=== PATIENT | female | born 1965 | race Caucasian/White ===

== ENCOUNTER 2020-09-06 13:11 | Emergency (ER) | payer MEDICAID, SELFPAY ==
[2020-09-06 14:21] VITALS: PULSE 62; RESP 15; TEMP 36.6; O2SAT 100
[2020-09-06 14:26] VITALS: BP 87/53
--- NOTE | 2020-09-06 14:39 | XRR_ITS ---
PROCEDURE INFORMATION: Exam: XR Chest Exam date and time: 09/06/2020 2:39 PM Age: 55 years old Clinical indication: Cough and dyspnea; Additional info: Dyspnea/cough TECHNIQUE: Imaging protocol: XR of the chest. Views: 1 view. COMPARISON: CT abdomen pelvis w con* [id number] 09/06/2020 3:49 PM FINDINGS: Lungs: Unremarkable. No consolidation. Pleural spaces: Unremarkable. No pleural effusion. No pneumothorax. Heart/Mediastinum: Unremarkable. No cardiomegaly. Bones/joints: Sequela of ACDF in the lower cervical spine. The osseous structures are intact. XR/XR chest 1V portable [id number] IMPRESSION: No acute findings.
--- NOTE | 2020-09-06 14:41 | ECG_ITS ---
[facility] Test Date: 2020-09-06 Pat Name: Ailyn Banks Department: Room: Gender: Female Nurses Aide: : 1965 Requested By: Darrell Garcia Order Number: [id number] Lazarus MD: Isabella Santos M.D. Measurements Intervals [place] Rate: 66 P: 63 GA: 179 QRS: 59 QRSD: 91 T: 56 QT: 437 QTc: 459 Interpretive Statements SINUS RHYTHM No previous ECG available for comparison Electronically Signed On 09-08-2020 18:33:55 CDT by Isabella Santos M.D. [id number]
[2020-09-06 14:43] LABS: ABG PH Result 7.49 (7.35-7.45); Arterial Blood Gas Hematocrit 37.5 % (37-47); Base Excess ABG 3.8 mmol/L (-2.0-2.0); Blood Gas Allen Test Pos; Blood Gas Operator Identificat CAK; Blood Gas Sample Site Radial, left; Blood Gas Sample Type Arterial; Carboxyhemoglobin 4.9 %THgb (0.4-20.1); HCO3 ABG 27.2 mmol/L (22-26); HGB O2 Sat 93.8 % (95-100); Ionized Calcium Level - ABG 1.2 mmol/L (1.1-1.4); Methemoglobin 0.9 % (0.4-1.5); Oxygen Device NC; Oxygen Saturation ABG 99.5; Potassium Level - ABG 3.7 mmol/L (3.5-5.0); Total Hemoglobin 12.2 g/dL (12-16)
[2020-09-06] MEDS: sodium chloride 0.9% 1,000 ML 999 ML IV ×2 (14:43)
[2020-09-06 14:52] VITALS: BP 136/64; PULSE 67; RESP 18; O2SAT 99
[2020-09-06] MEDS: ondansetron 2 mg/ML SDV 2 mL 4 MG IVP (14:52)
[2020-09-06 14:54] LABS: Ketone (Acetest) Serum Negative (Negative)
[2020-09-06 14:56] LABS: Basophils % 0.3 %; Eosinophils # 0.1 10^3/uL (0.0-0.8); Eosinophils % 0.7 %; Hematocrit 40.2 % (37.0-47.0); Hemoglobin 12.4 g/dL (11.5-15.3); Lymphocytes # 1.6 10^3/uL (0.8-4.8); Lymphocytes % 15.6 %; Mean Corpuscular HGB Conc 30.8 g/dL (30.0-36.0); Mean Corpuscular Hemoglobin 28.7 pg (28.0-34.0); Mean Corpuscular Volume 93.1 fL (81-99); Mean Platelet Volume 12.4 fL (7.4-10.4); Monocytes # 0.7 10^3/uL (0.2-0.9); Monocytes % 6.8 %; Neutrophils # 7.57 10^3/uL (1.8-7.7); Neutrophils % 76.3 %; Nucleated Red Blood Cells % 0 %; Platelet Count 209 10^3/cmm (130-400); Red Blood Count 4.32 10^6/uL (4.1-5.3); White Blood Count 9.9 10^3/uL (4.0-10.0)
[2020-09-06 15:04] LABS: Alanine Aminotransferase 15 U/L (0-33); Albumin Level 3.9 g/dL (3.5-5.2); Alkaline Phosphatase 80 IU/L (35-105); Anion Gap 16.3 (5-19); Aspartate Amino Transferase 22 U/L (0-32); Blood Urea Nitrogen 11 mg/dL (6-20); Calcium 9.1 mg/dL (8.5-10.5); Carbon Dioxide 27 mmol/L (22-29); Chloride 96 mmol/L (98-107); Creatine Phosphokinase 49 U/L (26-192); Globulin 2.8 g/dL (1.3-4.6); Glomerular Filtration Rate 65.5 mL/min (90-130); Glucose 147 mg/dL (65-115); Lipase 49 U/L (13-60); Osmolality Calculated 282 mOsm/kg (285-295); Potassium 4.3 mmol/L (3.5-5.1); Sodium 135 mmol/L (136-145); Total Bilirubin 0.4 mg/dL (0.15-1.2); Total Protein 6.7 g/dL (6.6-8.7)
[2020-09-06 15:05] LABS: Ammonia 28 umol/L (11-51); Lactic Sepsis W/Reflex 1.5 mmol/L (0.5-2.2); Partial Thromboplastin Time 24.4 SECONDS (23.9-36.7)
--- NOTE | 2020-09-06 15:06 | W.ED.ABDPA2 ---
HPI - Abdominal Pain General: Chief Complaint: Abdominal Pain Stated Complaint: abdominal pain, nausea Time Seen by Provider: 09/06/20 14:39 History of Present Illness: HPI narrative: 55 yo presents complaining of abdominal pain black tarry stools for last 2 days. Complaining of nausea vomiting diarrhea. She also is mildly hypotensive initially on arrival. Patient with the patient has not had any hematemesis or coffee-ground emesis. Had several episodes of vomiting shortly after arrival. MD elicited complaint: abdominal pain Onset (ago): hour(s) Pain Consistency: intermittent Location: Epigastric Quality: cramping Radiation: none Migration to: no migration Exacerbating factors: nothing Relieving factors: nothing Associated Symptoms: Reports change in stool character (Tarry stools), GI cramping and hematochezia; Denies anorexia, belching, bloating, change in bowel habits, chills, coffee ground emesis, constipation, diarrhea, dyspepsia, dysuria, excessive flatus, fever(s), heartburn, hematuria, hematemesis, fecal incontinence, loose stools, melena, nausea, poor appetite, syncope and vomiting Review of Systems Const: Denies: fever(s) or chills ENMT: Denies: throat pain, ear or mastoid pain, nasal discharge or nasal congestion Card: Denies: syncope Resp: Denies: dyspnea, productive cough or non-productive cough GI: Reports: GI cramping, change in stool character (Tarry stools) and hematochezia; Denies: nausea, vomiting, hematemesis, coffee ground emesis, heartburn, diarrhea, constipation, bloating, belching, excessive flatus, fecal incontinence, change in bowel habits or melena : Denies: dysuria or hematuria Skin/Breast: Denies: rash or pruritus Physical Exam Const: COMMON NORMALS: no acute distress GENERAL APPEARANCE: cooperative and comfortable ORIENTATION/CONSCIOUSNESS: Yes awake, Yes oriented to person, Yes oriented to place and Yes oriented to time HENMT: COMMON NORMALS: normocephalic, atraumatic, hearing grossly normal bilaterally, external ears normal, EAC's normal, TM's normal bilaterally, Normal nasal mucous membranes and turbinates present, moist oral mucous membranes and oropharynx normal HEAD & SCALP: normocephalic and atraumatic NOSE: Normal nasal mucous membranes and turbinates present EXTERNAL EAR: Yes external ears normal EXTERNAL AUDITORY CANAL: EAC's normal TYMPANIC MEMBRANE: TM's normal bilaterally Eye: COMMON NORMALS: Equal, round and reactive pupils present, EOMs intact bilaterally, conjunctivae normal and no scleral icterus CONJUNCTIVA: Yes conjunctivae normal PUPIL: Yes Equal, round and reactive pupils present Neck/C-Spine: COMMON NORMALS: full ROM, no lymphadenopathy, supple and no JVD Lymph: LYMPHATIC: no lymphadenopathy noted and no lymphedema noted Resp: COMMON NORMALS: normal respiratory effort, No retractions, No use of accessory muscles and clear to auscultation bilaterally AUSCULTATION: clear to auscultation bilaterally Cardio: COMMON NORMALS: no JVD, regular rate, regular rhythm and No murmurs present (Cardio) RATE: regular rate RHYTHM: regular rhythm GI: COMMON NORMALS: Soft to palpation and No hepatosplenomegaly present AUSCULTATION: Yes normoactive bowel sounds PALPATION: Yes Soft to palpation, No Tenderness to palpation present (GI), No Guarding due to palpation present (GI) and Yes No hepatosplenomegaly present Extremity: COMMON NORMALS: normal to inspection, capillary refill normal, no clubbing, cyanosis or edema, no calf tenderness and no pedal edema Neuro: SENSORIUM/ORIENTATION: Yes oriented to person, Yes oriented to place and Yes oriented to time Skin: COMMON NORMALS: no rashes or lesions noted GENERAL SKIN EXAM: no rashes or lesions noted Course Vital Signs: Vital signs: Vital Signs Temperature 97.8 F 09/06/20 14:21 Pulse Rate 77 09/06/20 18:21 Respiratory Rate 22 H 09/06/20 18:21 Blood Pressure 130/79 09/06/20 18:21 Pulse Oximetry 95 09/06/20 18:21 MDM - Abdominal Pain MDM Narrative: Medical decision making narrative: Labs reviewed with patient. Hemoglobin stable. Hemoccult at the bedside negative. No acute findings on the CT there is some cirrhosis of the liver that is chronic noted here. Reviewed with the patient will discharge home give Zofran clear liquid diet next 24 to 48 hours increase that tolerated if any worsening or change return to emergency room. Lab Data: Labs: Lab Results 09/06/20 09/06/20 09/06/20 Range/Units 14:32 14:37 14:37 WBC 9.9 (4.0-10.0) 10^3/ uL RBC 4.32 (4.1-5.3) 10^6/u L Hgb 12.4 (11.5-15.3) g/dL Hct 40.2 (37.0-47.0) % MCV 93.1 (81-99) fL MCH 28.7 (28.0-34.0) pg MCHC 30.8 (30.0-36.0) g/dL RDW 16.0 H (12.1-15.1) % Plt Count 209 (130-400) 10^3/c mm MPV 12.4 H (7.4-10.4) fL Neut % (Auto) 76.3 % Lymph % (Auto) 15.6 % Wetzel % (Auto) 6.8 % Eos % (Auto) 0.7 % Baso % (Auto) 0.3 % Neut # (Auto) 7.57 (1.8-7.7) 10^3/u L Lymph # (Auto) 1.6 (0.8-4.8) 10^3/u L Wetzel # (Auto) 0.7 (0.2-0.9) 10^3/u L Eos # (Auto) 0.1 (0.0-0.8) 10^3/u L Baso # (Auto) 0.0 (0.0-0.1) 10^3/u L Nucleated RBC % (a uto) 0 % Nucleated RBCs # 0.0 /100WBC PT (12.1-14.9) SECO NDS INR (0.8-1.2) APTT (23.9-36.7) SECO NDS Specimen Type Arterial Sample Site Radial, left ABG pH 7.49 H (7.35-7.45) ABG pCO2 36.0 (35-45) mmHg ABG pO2 112.0 H (80.0-100.0) mmH g ABG HCO3 27.2 H (22-26) mmol/L ABG O2 Saturation 99.5 ABG Base Excess 3.8 H (-2.0-2.0) mmol/ L Jama Test Pos A-a O2 Gradient Not Reportable Hematocrit 37.5 (37-47) % Hgb O2 Saturation 93.8 L (95-100) % Carboxyhemoglobin 4.9 (0.4-20.1) %THgb Methemoglobin 0.9 (0.4-1.5) % Total Hemoglobin 12.2 (12-16) g/dL Sodium 135.0 135 L (131-143) mmol/L Potassium 3.7 4.3 (3.5-5.0) mmol/L Glucose 151.0 H 147 H (70-115) mg/dL Ionized Calcium 1.2 (1.1-1.4) mmol/L O2 Delivery Device Nc O2 Liters/Min 3.0 % Territory Representative ID Cak Chloride 96 L (98-107) mmol/L Carbon Dioxide 27 (22-29) mmol/L Anion Gap 16.3 (5-19) BUN 11 (6-20) mg/dL Creatinine 0.9 (0.5-0.9) mg/dL GFR Calculation 65.5 L (90-130) mL/min Calculated Osmolal ity 282 L (285-295) mOsm/k g Lactic Acid (0.5-2.2) mmol/L Calcium 9.1 (8.5-10.5) mg/dL Total Bilirubin 0.4 (0.15-1.2) mg/dL AST 22 (0-32) U/L ALT 15 (0-33) U/L Alkaline Phosphata se 80 (35-105) IU/L Ammonia (11-51) umol/L Creatine Kinase 49 (26-192) U/L Troponin T Baselin e (0-10) ng/L Troponin T 120 Min [place] (0-10) ng/L Delta Troponin T (0-10) ABS# Total Protein 6.7 (6.6-8.7) g/dL Albumin 3.9 (3.5-5.2) g/dL Globulin 2.8 (1.3-4.6) g/dL Lipase 49 (13-60) U/L Urine Color (Yellow) Urine Appearance (CLEAR) Urine pH (5-7) Ur Specific Gravit y (1.005-1.030) Urine Protein (Negative) Urine Glucose (UA) (Normal) Urine Ketones (Negative) Urine Blood (Negative) Urine Nitrate (Negative) Urine Bilirubin (Negative) Urine Urobilinogen (Negative) mg/dL Ur Leukocyte Vanita ase (Negative) Serum Ketones (Negative) Blood Type Rho(D) Type Antibody Screen 09/06/20 09/06/20 09/06/20 Range/Units 14:37 14:37 14:37 WBC (4.0-10.0) 10^3/ uL RBC (4.1-5.3) 10^6/u L Hgb (11.5-15.3) g/dL Hct (37.0-47.0) % MCV (81-99) fL MCH (28.0-34.0) pg MCHC (30.0-36.0) g/dL RDW (12.1-15.1) % Plt Count (130-400) 10^3/c mm MPV (7.4-10.4) fL Neut % (Auto) % Lymph % (Auto) % Wetzel % (Auto) % Eos % (Auto) % Baso % (Auto) % Neut # (Auto) (1.8-7.7) 10^3/u L Lymph # (Auto) (0.8-4.8) 10^3/u L Wetzel # (Auto) (0.2-0.9) 10^3/u L Eos # (Auto) (0.0-0.8) 10^3/u L Baso # (Auto) (0.0-0.1) 10^3/u L Nucleated RBC % (a uto) % Nucleated RBCs # /100WBC PT 13.50 (12.1-14.9) SECO NDS INR 1.00 (0.8-1.2) APTT 24.4 (23.9-36.7) SECO NDS Specimen Type Sample Site ABG pH (7.35-7.45) ABG pCO2 (35-45) mmHg ABG pO2 (80.0-100.0) mmH g ABG HCO3 (22-26) mmol/L ABG O2 Saturation ABG Base Excess (-2.0-2.0) mmol/ L Jama Test A-a O2 Gradient Hematocrit (37-47) % Hgb O2 Saturation (95-100) % Carboxyhemoglobin (0.4-20.1) %THgb Methemoglobin (0.4-1.5) % Total Hemoglobin (12-16) g/dL Sodium (131-143) mmol/L Potassium (3.5-5.0) mmol/L Glucose (70-115) mg/dL Ionized Calcium (1.1-1.4) mmol/L O2 Delivery Device O2 Liters/Min % Territory Representative ID Chloride (98-107) mmol/L Carbon Dioxide (22-29) mmol/L Anion Gap (5-19) BUN (6-20) mg/dL Creatinine (0.5-0.9) mg/dL GFR Calculation (90-130) mL/min Calculated Osmolal ity (285-295) mOsm/k g Lactic Acid 1.5 (0.5-2.2) mmol/L Calcium (8.5-10.5) mg/dL Total Bilirubin (0.15-1.2) mg/dL AST (0-32) U/L ALT (0-33) U/L Alkaline Phosphata se (35-105) IU/L Ammonia (11-51) umol/L Creatine Kinase (26-192) U/L Troponin T Baselin e (0-10) ng/L Troponin T 120 Min [place] (0-10) ng/L Delta Troponin T (0-10) ABS# Total Protein (6.6-8.7) g/dL Albumin (3.5-5.2) g/dL Globulin (1.3-4.6) g/dL Lipase (13-60) U/L Urine Color (Yellow) Urine Appearance (CLEAR) Urine pH (5-7) Ur Specific Gravit y (1.005-1.030) Urine Protein (Negative) Urine Glucose (UA) (Normal) Urine Ketones (Negative) Urine Blood (Negative) Urine Nitrate (Negative) Urine Bilirubin (Negative) Urine Urobilinogen (Negative) mg/dL Ur Leukocyte Vanita ase (Negative) Serum Ketones Negative (Negative) Blood Type Rho(D) Type Antibody Screen 09/06/20 09/06/20 09/06/20 Range/Units 14:37 14:37 16:32 WBC (4.0-10.0) 10^3/ uL RBC (4.1-5.3) 10^6/u L Hgb (11.5-15.3) g/dL Hct (37.0-47.0) % MCV (81-99) fL MCH (28.0-34.0) pg MCHC (30.0-36.0) g/dL RDW (12.1-15.1) % Plt Count (130-400) 10^3/c mm MPV (7.4-10.4) fL Neut % (Auto) % Lymph % (Auto) % Wetzel % (Auto) % Eos % (Auto) % Baso % (Auto) % Neut # (Auto) (1.8-7.7) 10^3/u L Lymph # (Auto) (0.8-4.8) 10^3/u L Wetzel # (Auto) (0.2-0.9) 10^3/u L Eos # (Auto) (0.0-0.8) 10^3/u L Baso # (Auto) (0.0-0.1) 10^3/u L Nucleated RBC % (a uto) % Nucleated RBCs # /100WBC PT (12.1-14.9) SECO NDS INR (0.8-1.2) APTT (23.9-36.7) SECO NDS Specimen Type Sample Site ABG pH (7.35-7.45) ABG pCO2 (35-45) mmHg ABG pO2 (80.0-100.0) mmH g ABG HCO3 (22-26) mmol/L ABG O2 Saturation ABG Base Excess (-2.0-2.0) mmol/ L Jama Test A-a O2 Gradient Hematocrit (37-47) % Hgb O2 Saturation (95-100) % Carboxyhemoglobin (0.4-20.1) %THgb Methemoglobin (0.4-1.5) % Total Hemoglobin (12-16) g/dL Sodium (131-143) mmol/L Potassium (3.5-5.0) mmol/L Glucose (70-115) mg/dL Ionized Calcium (1.1-1.4) mmol/L O2 Delivery Device O2 Liters/Min % Territory Representative ID Chloride (98-107) mmol/L Carbon Dioxide (22-29) mmol/L Anion Gap (5-19) BUN (6-20) mg/dL Creatinine (0.5-0.9) mg/dL GFR Calculation (90-130) mL/min Calculated Osmolal ity (285-295) mOsm/k g Lactic Acid (0.5-2.2) mmol/L Calcium (8.5-10.5) mg/dL Total Bilirubin (0.15-1.2) mg/dL AST (0-32) U/L ALT (0-33) U/L Alkaline Phosphata se (35-105) IU/L Ammonia 28 (11-51) umol/L Creatine Kinase (26-192) U/L Troponin T Baselin e 6 (0-10) ng/L Troponin T 120 Min [place] 6.60 (0-10) ng/L Delta Troponin T 0.60 (0-10) ABS# Total Protein (6.6-8.7) g/dL Albumin (3.5-5.2) g/dL Globulin (1.3-4.6) g/dL Lipase (13-60) U/L Urine Color (Yellow) Urine Appearance (CLEAR) Urine pH (5-7) Ur Specific Gravit y (1.005-1.030) Urine Protein (Negative) Urine Glucose (UA) (Normal) Urine Ketones (Negative) Urine Blood (Negative) Urine Nitrate (Negative) Urine Bilirubin (Negative) Urine Urobilinogen (Negative) mg/dL Ur Leukocyte Vanita ase (Negative) Serum Ketones (Negative) Blood Type Rho(D) Type Antibody Screen 09/06/20 09/06/20 Range/Units 16:32 17:10 WBC (4.0-10.0) 10^3/ uL RBC (4.1-5.3) 10^6/u L Hgb (11.5-15.3) g/dL Hct (37.0-47.0) % MCV (81-99) fL MCH (28.0-34.0) pg MCHC (30.0-36.0) g/dL RDW (12.1-15.1) % Plt Count (130-400) 10^3/c mm MPV (7.4-10.4) fL Neut % (Auto) % Lymph % (Auto) % Wetzel % (Auto) % Eos % (Auto) % Baso % (Auto) % Neut # (Auto) (1.8-7.7) 10^3/u L Lymph # (Auto) (0.8-4.8) 10^3/u L Wetzel # (Auto) (0.2-0.9) 10^3/u L Eos # (Auto) (0.0-0.8) 10^3/u L Baso # (Auto) (0.0-0.1) 10^3/u L Nucleated RBC % (a uto) % Nucleated RBCs # /100WBC PT (12.1-14.9) SECO NDS INR (0.8-1.2) APTT (23.9-36.7) SECO NDS Specimen Type Sample Site ABG pH (7.35-7.45) ABG pCO2 (35-45) mmHg ABG pO2 (80.0-100.0) mmH g ABG HCO3 (22-26) mmol/L ABG O2 Saturation ABG Base Excess (-2.0-2.0) mmol/ L Jama Test A-a O2 Gradient Hematocrit (37-47) % Hgb O2 Saturation (95-100) % Carboxyhemoglobin (0.4-20.1) %THgb Methemoglobin (0.4-1.5) % Total Hemoglobin (12-16) g/dL Sodium (131-143) mmol/L Potassium (3.5-5.0) mmol/L Glucose (70-115) mg/dL Ionized Calcium (1.1-1.4) mmol/L O2 Delivery Device O2 Liters/Min % Territory Representative ID Chloride (98-107) mmol/L Carbon Dioxide (22-29) mmol/L Anion Gap (5-19) BUN (6-20) mg/dL Creatinine (0.5-0.9) mg/dL GFR Calculation (90-130) mL/min Calculated Osmolal ity (285-295) mOsm/k g Lactic Acid (0.5-2.2) mmol/L Calcium (8.5-10.5) mg/dL Total Bilirubin (0.15-1.2) mg/dL AST (0-32) U/L ALT (0-33) U/L Alkaline Phosphata se (35-105) IU/L Ammonia (11-51) umol/L Creatine Kinase (26-192) U/L Troponin T Baselin e (0-10) ng/L Troponin T 120 Min [place] (0-10) ng/L Delta Troponin T (0-10) ABS# Total Protein (6.6-8.7) g/dL Albumin (3.5-5.2) g/dL Globulin (1.3-4.6) g/dL Lipase (13-60) U/L Urine Color Yellow (Yellow) Urine Appearance Clear (CLEAR) Urine pH 7 (5-7) Ur Specific Gravit y 1.005 (1.005-1.030) Urine Protein Neg (Negative) Urine Glucose (UA) Norm (Normal) Urine Ketones Negative (Negative) Urine Blood Neg (Negative) Urine Nitrate Negative (Negative) Urine Bilirubin Neg (Negative) Urine Urobilinogen Norm (Negative) mg/dL Ur Leukocyte Vanita ase Negative (Negative) Serum Ketones (Negative) Blood Type A Positive Rho(D) Type Positive / 4+ Antibody Screen Negative Discharge Plan Discharge Patient Disposition: Home Clinical Impression: Gastroenteritis Condition: Stable Prescriptions: New Zofran 4 mg tablet 4 mg PO Q6H PRN (Reason: nausea and vomiting) Qty: 20 RF: 0 No Action tizanidine 4 mg tablet 4 mg PO BID PRN (Reason: Muscle Pain) RF: 0 hydrocodone-acetaminophen 7.5-325 mg tablet 1 tab PO Q6H PRN (Reason: Pain) RF: 0 pantoprazole 40 mg tablet,delayed release (DR/EC) 40 mg PO DAILY RF: 0 lisinopril 10 mg tablet 10 mg PO BID RF: 0 levothyroxine 150 mcg tablet 150 mcg PO DAILY RF: 0 ergocalciferol (vitamin D2) 1,250 mcg (50,000 unit) capsule 1,250 mcg PO Q7D RF: 0 escitalopram oxalate 20 mg tablet 20 mg PO DAILY RF: 0 aripiprazole 10 mg tablet 10 mg PO DAILY RF: 0 Discharge Orders: Discharge ED (Routine); Ordered 09/06/20 Ordered By: Darrell Willis Discharge Diet: Clear Liquid Discharge Activity: Increase activity as tolerated Patient Instructions: Opioid Safety Coding Level of Care Code ED Ophthalmic Photographer for Karel Wharton
--- NOTE | 2020-09-06 15:07 | CTR_ITS ---
PROCEDURE INFORMATION: Exam: CT Abdomen And Pelvis With Contrast Exam date and time: 09/06/2020 3:07 PM Age: 55 years old Clinical indication: Abdominal pain; Generalized; Prior surgery; Patient HX: Black stools, pain/nausea; Additional info: Abd pain TECHNIQUE: Imaging protocol: Computed tomography of the abdomen and pelvis with contrast. Radiation optimization: All CT scans at this facility use at least one of these dose optimization techniques: automated exposure control; mA and/or kV adjustment per patient size (includes targeted exams where dose is matched to clinical indication); or iterative reconstruction. Contrast material: OMNI 300; Contrast volume: 95 ml; Contrast route: INTRAVENOUS (IV); COMPARISON: No relevant prior studies available. RADIATION DOSE METRICS: Total DLP (mGy-cm): 1857.51 FINDINGS: Lungs: Calcified granuloma in the right lung base. Liver: Nodular cirrhotic liver morphology. No focal lesion. Gallbladder and bile ducts: Cholecystectomy clips. Pancreas: Mild fatty atrophy of the pancreas. No ductal dilation. Spleen: Normal. No splenomegaly. Adrenal glands: Normal. No mass. Kidneys and ureters: Normal. No hydronephrosis. Stomach and bowel: Unremarkable. No obstruction. No mucosal thickening. Appendix: No evidence of appendicitis. Intraperitoneal space: Unremarkable. No free air. No significant fluid collection. Vasculature: Unremarkable. No abdominal aortic aneurysm. Lymph nodes: Unremarkable. No enlarged lymph nodes. Urinary bladder: Unremarkable as visualized. Reproductive: Unremarkable as visualized. Bones/joints: No acute fracture. Moderate multilevel degenerative disc disease and spondylosis of the lumbar spine. Soft tissues: Unremarkable. CT/CT abdomen pelvis w con* [id number] IMPRESSION: 1. No acute abdominal/pelvic findings. 2. Cirrhotic liver morphology. Radiation Dose CTDIVOL = (mGy): DLP = 1857.51 (mGy-cm)
[2020-09-06 15:08] LABS: Troponin(5th) Baseline 6 ng/L (0-10)
[2020-09-06] MEDS: promethazine 25 mg/mL SDV 1 mL IM (15:43)
[2020-09-06] MEDS: iohexol 300 mg/mL 100 mL Btl IV (15:53)
[2020-09-06 16:18] VITALS: RESP 16
[2020-09-06] MEDS: morphine 4 mg/mL SDV 1 mL IVP (16:18)
[2020-09-06 17:41] VITALS: RESP 18
[2020-09-06] MEDS: morphine 4 mg/mL SDV 1 mL 2 MG IVP (17:41)
[2020-09-06 17:47] LABS: Add Urine Microscopic? NO; Charge for UA Resulting for Rev
[2020-09-06 18:04] LABS: Bilirubin Urine Neg (Negative); Blood Urine Neg (Negative); Glucose Urine UA Norm (Normal); Ketones Urine Negative (Negative); Leukocyte Esterase Urine Negative (Negative); Nitrate Urine Negative (Negative); Protein Urine Neg (Negative); Specific Gravity, Urine 1.005 (1.005-1.030); Urine Appearance Clear (CLEAR); Urine Color Yellow (Yellow); Urobilinogen Urine Norm (Negative); pH Urine 7 (5-7)
[2020-09-06] MEDS: lidocaine 2% viscous 15 ML, aluminum-mag hydrox-simethicon 30 ML, sucralfate oral liq 1 GM PO (18:10)
[2020-09-06 18:21] VITALS: BP 130/79; PULSE 77; RESP 22; O2SAT 95
== END 2020-09-06 18:23 | disposition home or self-care (01) ==
PROVIDERS: Emergency Provider Family Medicine
DX: K52.9 Noninfective gastroenteritis and colitis, unspecified (principal)
CPT/HCPCS: 36415; 36600; 71045; 74177; 80051; 80053; 81003; 82009; 82140; 82330; 82550; 82805; 83605; 83690; 84484; 85025; 85610; 85730; 86850; 86900; 93005; 96361; 96372; 96374; 96375; 96376; 99284; J2270; J2405; J2550; J7030; Q9967

== ENCOUNTER → 2020-09-11 10:32 | Outpatient (BNVA) | payer MEDICAID, SELFPAY | PROVIDERS: Visit Provider Nurse Practitioner Family | DX: E55.9 Vitamin D deficiency, unspecified (principal); I10 Essential (primary) hypertension; N80.9 Endometriosis, unspecified; F41.9 Anxiety disorder, unspecified; F32.9 Major depressive disorder, single episode, unspecified; H60.501 Unspecified acute noninfective otitis externa, right ear; E03.9 Hypothyroidism, unspecified; Z12.11 Encounter for screening for malignant neoplasm of colon; K21.9 Gastro-esophageal reflux disease without esophagitis | CPT/HCPCS: 80053; 80061; 82306; 82607; 84443; 85025 ==

== ENCOUNTER → 2020-09-27 10:39 | Outpatient (BNVA) | payer MEDICAID, SELFPAY | PROVIDERS: PCP Nurse Practitioner Family; Visit Provider Nurse Practitioner Family | DX: R19.7 Diarrhea, unspecified (principal) | CPT/HCPCS: 80053; 83630; 85025; 87338; 87493; 87506; G0328 ==

== ENCOUNTER → 2020-11-19 09:02 | Outpatient (BNVA) | payer MEDICAID, SELFPAY | PROVIDERS: PCP Nurse Practitioner Family; Visit Provider Internal Medicine | DX: Z01.812 Encounter for preprocedural laboratory examination (principal); Z20.822 Contact with and (suspected) exposure to COVID-19 | CPT/HCPCS: 87635 ==

== ENCOUNTER 2020-11-25 05:40 | Day surgery (SDC) | payer MEDICAID, SELFPAY ==
[2020-11-25] MEDS: sodium chloride 0.9% 1,000 ML 30 ML IV (06:27)
[2020-11-25 06:28] VITALS: BP 154/103; PULSE 107; RESP 16; TEMP 36.7; O2SAT 97
--- NOTE | 2020-11-25 07:31 | ANES.PREANE2 ---
Pre-Anesthetic Assessment Pre-Anesthetic Assessment: Height/Weight: Height 1.57 m Weight 117.027 kg Temp Pulse Resp BP Pulse Ox 98.1 F 107 H 16 154/103 97 11/25/20 06:28 11/25/20 06:28 11/25/20 06:28 11/25/20 06:28 11/25/20 06:28 Proposed Procedure: Operation Date: 11/25/20 07:00 Proposed Procedures p EGD/Colon 81416 R19.7(Not Applicable) - Baldemar Goncalves MD s Colonoscopy 60199 R19.7(Not Applicable) - Baldemar Goncalves MD Was Beta Nicanor taken within 24 hours: N/A Was Clonidine taken within 24 hours: N/A Last intake: Intake Last Liquid Date 11/24/20 Last Liquid Time 23:30 Last Solid Date 11/23/20 Last Solid Time 00:00 Social: Social History: No alcohol and No tobacco Packs per day: 1 Pack years: 40 Exam: Pre-Anes Outpt Exam: alert, oriented x 3 and regular rate & rhythm Airway: Submandibular: WNL Cervical ROM: WNL MP: 1 Dentition: False History/ROS: No significant history except as noted Pulmonary: Pulmonary: Asthma and PIEDRA CV/HEM: CV/HEM: HTN Comments: pt reports she blacked out and they told her she had DFIB without a pulse or BP : Comments: atrophic bladder Hepatic: Hepatic: Cirrohsis (pt reports she has stage five in 2015 ) and Hepatitis (hep C- treated in 2019) GI: GI: GERD Metabolic: Metabolic: Morbid obesity and Thyroid Musc/skel: Comments: pt reports severe spinal stenosis Neuropsych: Neuropsych: 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) Anesthetic Plan: ASA status: 4 Anesthesia: Anesthesia Evaluation and MAC Risk of > 500 ml blood loss (7ml/kg in children): No Meds/Allergies Current Medications: Current Medications Generic Name Dose Route Start Last Admin Trade Name Freq PRN Reason Stop Dose Admin Sodium Chloride 1,000 mls @ 30 ml s/hr 11/25/20 06:15 11/25/20 06:27 Sodium Chloride 0.9% IV 11/26/20 06:14 30 mls/hr .Q24H MONICA Administration PFSH Anesthesia PFSH: Medical History Anxiety and depression Bipolar affect, depressed Chronic pain GERD (gastroesophageal reflux disease) Hepatitis C has been treated Hx of spinal stenosis Hypertension Hypothyroid Surgical History History of cholecystectomy Hx of spinal surgery Hx of total knee replacement Hx of tubal ligation Family History Mother CAD (coronary artery disease) Family/Other Diabetes Other Hypertension Denies family history of Clotting disorder Anesthesia complication Bleeding disorder Social History Smoking and tobacco status: current every day smoker cigarettes Packs smoked per day: 0.25 Years cigarettes smoked: 40 Quit status (tobacco): considering quitting Second hand smoke exposure: No Alcohol intake: never Caregiver/support person: Yes Lives independently: Yes Household members: spouse Marital status: service: No Current occupational status: disabled History of recent travel: No Current gender identity: Female Special nereida needs: No Agree to transfusion: Yes Data Anesthesia Cardiac Studies: No Data to Display
--- NOTE | 2020-11-25 07:43 | P.HP_ITS ---
Same Day Surgery H&P Indication for Procedure/HPI DATE OF PROCEDURE: November 25, 2020 CHIEF COMPLAINT/INDICATIONFOR SURGICAL PROCEDURE: N/V/D PREOP DIAGNOSIS: N/V/D PLANNED PROCEDRUE: Operation Date: 11/25/20 07:00 Proposed Procedures p EGD/Colon 04259 R19.7(Not Applicable) - Baldemar Goncalves MD s Colonoscopy 92800 R19.7(Not Applicable) - Baldemar Goncalves MD Medications/Allergies* Home Medications Medication Instructions Recorded Confirmed Type sucralfate 1 gram tablet 1 g PO BID PRN 09/11/20 11/25/20 History Allergies/Adverse Reactions Allergy/AdvReac Type Severity Reaction Status Date / Time aspirin Allergy Unknown ALGY-Rash Verified 11/21/20 10:45 doxycycline Allergy Unknown ALGY-Swell Verified 11/21/20 10:45 Lip/Tongue/Throat Penicillins Allergy Unknown ALGY-Rash Verified 11/21/20 10:45 pregabalin [From Lyrica] Allergy Unknown ALGY-Anaphy Verified 11/21/20 10:45 laxis quetiapine [From Seroquel] Allergy Unknown ALGY-Anaphy Verified 11/21/20 10:45 laxis trazodone Allergy Unknown ALGY-Anaphy Verified 11/21/20 10:45 laxis adhesive tape Allergy ALGY-Rash Verified 11/21/20 10:49 atenolol Allergy ADR-Hyperte Verified 11/21/20 10:47 nsion bupropion [From Wellbutrin] Allergy ALGY-Difficulty Verified 11/21/20 10:46 Breathing citalopram Allergy Unknown Verified 11/21/20 10:45 gabapentin [From Neurontin] Allergy ALGY-Difficulty Verified 11/21/20 10:47 Breathing valsartan [From Diovan] Allergy ADR-Hyperte Verified 11/21/20 10:47 nsion Current Medications: Generic Name Dose Route Start Last Admin Trade Name Freq PRN Reason Stop Dose Admin Sodium Chloride 1,000 mls @ 30 mls/hr 11/25/20 06:15 11/25/20 06:27 Sodium Chloride 0.9% IV 11/26/20 06:14 30 mls/hr .Q24H MONICA Administration Pertinent History/Comorbid Conditions* Medical History (Updated 11/14/20 @ 11:00 by Baldemar Goncalves MD) Anxiety and depression Bipolar affect, depressed Chronic pain GERD (gastroesophageal reflux disease) Hepatitis C has been treated Hx of spinal stenosis Hypertension Hypothyroid Surgical History (Updated 09/11/20 @ 10:18 by TONY Freire) History of cholecystectomy Hx of spinal surgery Hx of total knee replacement Hx of tubal ligation Family History (Updated 09/11/20 @ 09:48 by Nadia Ling LPN, RT) Diabetes Family/Other CAD (coronary artery disease) Mother Hypertension Denies family history of Clotting disorder Anesthesia complication Bleeding disorder Social History Smoking and tobacco status: current every day smoker cigarettes Packs smoked per day: 0.25 Years cigarettes smoked: 40 Quit status (tobacco): considering quitting Second hand smoke exposure: No Alcohol intake: never Caregiver/support person: Yes Lives independently: Yes Household members: spouse Marital status: service: No Current occupational status: disabled History of recent travel: No Current gender identity: Female Special nereida needs: No Agree to transfusion: Yes Pertinent Exam Findings alert, oriented x 3, clear to auscultation bilaterally, regular rate & rhythm, operative site marked and procedure specific exam findings Recommendations Surgery/Procedure today Coding Level of Care Code Acute [employer]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
[2020-11-25 08:15] VITALS: BP 141/21; PULSE 105; RESP 18; TEMP 36.6; O2SAT 92
[2020-11-25 08:29] VITALS: BP 102/77; PULSE 88; RESP 18; O2SAT 97
--- NOTE | 2020-11-25 14:56 | ANE.PACU2 ---
Inpatient post-anesthesia follow up: Airway intact: Yes Vital signs: Temperature 97.9 F Pulse Rate 88 Respiratory Rate 18 Blood Pressure 102/77 Pulse Oximetry 97 Oxygen Delivery Me thod Room Air Oxygen Flow Rate Fraction of Inspir ed Oxygen Hydration adequate: Yes Nausea and vomiting: No Pain level: 2 Mental status: Baseline
== END 2020-11-25 08:48 | disposition home or self-care (01) ==
PROVIDERS: PCP Nurse Practitioner Family; Visit Provider Internal Medicine
PROC: 0DJ08ZZ Inspection of Upper Intestinal Tract, Via Natural or Artificial Opening Endoscopic (ICD-10-PCS; CPT 43235; principal; 2020-11-25 07:00)
PROC: 0DJD8ZZ Inspection of Lower Intestinal Tract, Via Natural or Artificial Opening Endoscopic (ICD-10-PCS; CPT 45378; 2020-11-25 07:00)
DX: R19.7 Diarrhea, unspecified (principal); R11.2 Nausea with vomiting, unspecified; Z79.82 Long term (current) use of aspirin; F41.9 Anxiety disorder, unspecified; F32.9 Major depressive disorder, single episode, unspecified; K21.9 Gastro-esophageal reflux disease without esophagitis; Z86.19 Personal history of other infectious and parasitic diseases; I10 Essential (primary) hypertension; E03.9 Hypothyroidism, unspecified; Z82.49 Family history of ischemic heart disease and other diseases of the circulatory system; Z83.3 Family history of diabetes mellitus; F17.210 Nicotine dependence, cigarettes, uncomplicated; E66.01 Morbid (severe) obesity due to excess calories; Z68.42 Body mass index [BMI] 45.0-49.9, adult
CPT/HCPCS: 43235; 45378; 96360; 96361; J2704; J7030

== ENCOUNTER 2020-11-26 19:07 | Observation (INO) | payer MEDICAID, SELFPAY ==
[2020-11-26] VITALS (14 sets, daily range): BP systolic 69–128; BP diastolic 41–80; PULSE 53–76; RESP 15–20; TEMP 36.6–37.4; O2SAT 94–100; BMI 47.0
--- NOTE | 2020-11-26 19:14 | XRR_ITS ---
PROCEDURE INFORMATION: Exam: XR Chest Exam date and time: 11/26/2020 7:14 PM Age: 55 years old Clinical indication: Sternal or substernal pain; Additional info: Cp TECHNIQUE: Imaging protocol: XR of the chest. Views: 1 view. COMPARISON: CR XR chest 1V portable [id number] 09/06/2020 4:02 PM FINDINGS: Lungs: Right hilar to lower lobe atelectasis versus infiltrate. Pleural spaces: Unremarkable. No pleural effusion. No pneumothorax. Heart/Mediastinum: Unremarkable. No cardiomegaly. Bones/joints: Unremarkable. XR/XR chest 1V portable [id number] IMPRESSION: Right hilar to lower lobe atelectasis versus infiltrate. Radiation Dose CTDIVOL = (mGy): DLP = (mGy-cm)
--- NOTE | 2020-11-26 19:14 | ECG_ITS ---
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 Measurements Intervals [place] Rate: 58 P: 65 [place]: 161 QRS: 54 QRSD: 91 T: 56 QT: 434 QTc: 430 Interpretive Statements SINUS BRADYCARDIA Compared to ECG 09/06/2020 16:37:40 Sinus rhythm no longer present Electronically Signed On 11-26-2020 22:01:44 CDT by Isabella Santos M.D. [id number]
--- NOTE | 2020-11-26 19:22 | W.ED.WEAKNES ---
HPI - Weakness General: Chief complaint: Weakness Stated complaint: HYPOTENSIVE/ WEAK/ NAUSEA Time Seen by Provider: 11/26/20 19:08 Source: patient and EMS Mode of arrival: EMS Limitations: no limitations History of Present Illness: HPI Narrative: 55-year-old female who states that starting today she been having weakness along with some left-sided neck and chest pain. She states that she has had chronic diarrhea and actually had a colonoscopy yesterday. States that she done the bowel prep a week and it caused her to have vomiting and diarrhea. She states this is caused her to be weaker than normal as well. States that her PCP yesterday also increased her lisinopril that today she went laid on the couch felt lightheaded and her blood pressure was low. Per EMS initial blood pressures were in the 60s. Denies any abdominal pain denies any fevers. Associated symptoms: Reports chest pain and vomiting; Denies chills, dysuria, easy bruising or fever(s) Review of Systems Const: Denies: fever(s), chills, body aches or change in appetite Eyes: Denies: blurry vision or eye discomfort ENMT: Denies: throat pain or dental pain Card: Reports: chest pain Resp: Denies: dyspnea GI: Reports: vomiting and diarrhea : Denies: dysuria Musc: Denies: neck pain or back pain Skin/Breast: Denies: rash Neuro: Reports: weakness in extremities Psych: Denies: depression Silvio/Lymph: Denies: easy bruising All/Imm: Denies: urticaria PFSH ED PFSH: Medical History Anxiety and depression Bipolar affect, depressed Chronic pain GERD (gastroesophageal reflux disease) Hepatitis C has been treated Hx of spinal stenosis Hypertension Hypothyroid Surgical History History of cholecystectomy Hx of spinal surgery Hx of total knee replacement Hx of tubal ligation Family History Mother CAD (coronary artery disease) Family/Other Diabetes Other Hypertension Denies family history of Clotting disorder Anesthesia complication Bleeding disorder Social History Quit status (tobacco): considering quitting Second hand smoke exposure: No Alcohol intake: never Caregiver/support person: Yes Lives independently: Yes Household members: spouse Marital status: service: No Current occupational status: disabled History of recent travel: No Current gender identity: Female Special nereida needs: No Agree to transfusion: Yes Physical Exam Const: COMMON NORMALS: no acute distress, patient oriented x3 and healthy appearing HENMT: COMMON NORMALS: normocephalic and atraumatic HEAD & SCALP: normocephalic and atraumatic Eye: COMMON NORMALS: Equal, round and reactive pupils present and EOMs intact bilaterally PUPIL: Yes Equal, round and reactive pupils present Neck/C-Spine: COMMON NORMALS: full ROM and supple Chest: COMMONS NORMALS: normal inspection of the chest and normal palpation of entire chest wall Resp: COMMON NORMALS: normal respiratory effort, No retractions, No use of accessory muscles and clear to auscultation bilaterally AUSCULTATION: clear to auscultation bilaterally Cardio: COMMON NORMALS: regular rate, regular rhythm and No murmurs present (Cardio) RATE: regular rate RHYTHM: regular rhythm GI: COMMON NORMALS: Normal to inspection, nondistended, normoactive bowel sounds present, Soft to palpation, non-tender and no masses PALPATION: Yes Soft to palpation Extremity: COMMON NORMALS: normal to inspection and full ROM Neuro: COMMON NORMALS: patient oriented x3, moves all extremities and no focal motor deficits Psych: COMMON NORMALS: mental status grossly normal, Normal thought process present and cooperative THOUGHT PROCESS: Normal thought process present Skin: COMMON NORMALS: no rashes or lesions noted and no wounds GENERAL SKIN EXAM: no rashes or lesions noted Course Vital Signs: Vital signs: Vital Signs Temperature 99.4 F 11/26/20 19:13 Pulse Rate 61 11/26/20 20:27 Respiratory Rate 16 11/26/20 20:27 Blood Pressure 97/73 11/26/20 20:27 Pulse Oximetry 100 11/26/20 20:27 MDM - Weakness MDM Narrative: Medical decision making narrative: Patient presents here with low blood pressure likely due more to dehydration. Does have a low-grade fever and possible pneumonia on x-ray but has normal white count and lactate with no signs septic shock. Blood pressure is much improved here after IV fluids started on Levaquin spoke to hospitalist will admit at this time. Lab Data: Labs: Lab Results 11/26/20 11/26/20 11/26/20 19:20 19:20 19:20 WBC 6.7 10^3/uL 10^3/ uL (4.0-10.0) RBC 3.85 10^6/uL L 10 ^6/uL (4.1-5.3) Hgb 11.2 g/dL L g/dL (11.5-15.3) Hct 35.7 % L % (37.0-47.0) MCV 92.7 fl fl (81-99) MCH 29.1 pg pg (28.0-34.0) MCHC 31.4 g/dL g/dL (30.0-36.0) RDW 15.2 % H % (12.1-15.1) Plt Count 157 10^3/cmm 10^3 /cmm (130-400) MPV 13.3 fL H fL (7.4-10.4) Neut % (Auto) 48.6 % % Lymph % (Auto) 41.7 % % [place] % (Auto) 7.1 % % Eos % (Auto) 1.8 % % Baso % (Auto) 0.6 % % Neut # (Auto) 3.24 10^3/uL 10^3 /uL (1.8-7.7) Lymph # (Auto) 2.8 10^3/uL 10^3/ uL (0.8-4.8) [place] # (Auto) 0.5 10^3/uL 10^3/ uL (0.2-0.9) Eos # (Auto) 0.1 10^3/uL 10^3/ uL (0.0-0.8) Baso # (Auto) 0.0 10^3/uL 10^3/ uL (0.0-0.1) Nucleated RBC % (a uto) 0 % % Nucleated RBCs # 0.0 /100WBC /100W BC PT 13.70 SECONDS SEC ONDS (12.1-14.9) INR 1.02 (0.8-1.2) Sodium 130 mmol/L L mmol /L (136-145) Potassium 3.8 mmol/L mmol/L (3.5-5.1) Chloride 96 mmol/L L mmol/ L (98-107) Carbon Dioxide 24 mmol/L mmol/L (22-29) Anion Gap 13.8 (5-19) BUN 9 mg/dL mg/dL (6-20) Creatinine 1.1 mg/dL H mg/dL (0.5-0.9) GFR Calculation 52.0 mL/min L mL/ min (90-130) Glucose 95 mg/dL mg/dL (65-115) Calculated Osmolal ity 268 mOsm/kg L mOs m/kg (285-295) Lactate Calcium 8.7 mg/dL mg/dL (8.5-10.5) Total Bilirubin 0.2 mg/dL mg/dL (0.15-1.2) AST 19 U/L U/L (0-32) ALT 12 U/L U/L (0-33) Alkaline Phosphata se 79 IU/L IU/L (35-105) Troponin T Baselin e Troponin T 120 Min [place] Troponin T Total Protein 6.3 g/dL L g/dL (6.6-8.7) Albumin 3.8 g/dL g/dL (3.5-5.2) Globulin 2.5 g/dL g/dL (1.3-4.6) Urine Color Urine Appearance Urine pH Ur Specific Gravit y Urine Protein Urine Glucose (UA) Urine Ketones Urine Blood Urine Nitrate Urine Bilirubin Urine Urobilinogen Ur Leukocyte Vanita ase 11/26/20 11/26/20 11/26/20 19:20 19:20 21:11 WBC RBC Hgb Hct MCV MCH MCHC RDW Plt Count MPV Neut % (Auto) Lymph % (Auto) [place] % (Auto) Eos % (Auto) Baso % (Auto) Neut # (Auto) Lymph # (Auto) [place] # (Auto) Eos # (Auto) Baso # (Auto) Nucleated RBC % (a uto) Nucleated RBCs # PT INR Sodium Potassium Chloride Carbon Dioxide Anion Gap BUN Creatinine GFR Calculation Glucose Calculated Osmolal ity Lactate 1.2 mmol/L mmol/L (0.5-2.2) Calcium Total Bilirubin AST ALT Alkaline Phosphata se Troponin T Baselin e 10 ng/L ng/L (0-10) Troponin T 120 Min [place] 9.14 ng/L ng/L (0-10) [place] Troponin T -0.86 ABS# L ABS# (0-10) Total Protein Albumin Globulin Urine Color Urine Appearance Urine pH Ur Specific Gravit y Urine Protein Urine Glucose (UA) Urine Ketones Urine Blood Urine Nitrate Urine Bilirubin Urine Urobilinogen Ur Leukocyte Vanita ase 11/26/20 21:14 WBC RBC Hgb Hct MCV MCH MCHC RDW Plt Count MPV Neut % (Auto) Lymph % (Auto) [place] % (Auto) Eos % (Auto) Baso % (Auto) Neut # (Auto) Lymph # (Auto) [place] # (Auto) Eos # (Auto) Baso # (Auto) Nucleated RBC % (a uto) Nucleated RBCs # PT INR Sodium Potassium Chloride Carbon Dioxide Anion Gap BUN Creatinine GFR Calculation Glucose Calculated Osmolal ity Lactate Calcium Total Bilirubin AST ALT Alkaline Phosphata se Troponin T Baselin e Troponin T 120 Min [place] Troponin T Total Protein Albumin Globulin Urine Color Yellow (Yellow) Urine Appearance Clear (CLEAR) Urine pH 6.5 (5-7) Ur Specific Gravit y 1.000 L (1.005-1.030) Urine Protein Neg (Negative) Urine Glucose (UA) Norm (Normal) Urine Ketones Negative (Negative) Urine Blood Neg (Negative) Urine Nitrate Negative (Negative) Urine Bilirubin Neg (Negative) Urine Urobilinogen Norm mg/dL mg/dL (Negative) Ur Leukocyte Vanita ase Negative (Negative) Imaging Data^: CXR: Attestation: I personally reviewed and interpreted this imaging study as follows: Radiologist's impression: [address] [address] XRay Report Signed Patient: Ailyn Banks Unit #: [id number] : 1965 Age/Sex: 55 / F ADM Date: 11/26/20 Loc: ER Room/Bed: Attending Dr: Ordering Provider/Ordering MD: Apryl Cook MD Date of Service: 11/26/20 Procedure(s): XR chest 1V portable [id number] Accession Number(s): [id number] Report Number: [id number] PROCEDURE INFORMATION: Exam: XR Chest Exam date and time: 11/26/2020 7:14 PM Age: 55 years old Clinical indication: Sternal or substernal pain; Additional info: Cp TECHNIQUE: Imaging protocol: XR of the chest. Views: 1 view. COMPARISON: CR XR chest 1V portable [id number] 09/06/2020 4:02 PM FINDINGS: Lungs: Right hilar to lower lobe atelectasis versus infiltrate. Pleural spaces: Unremarkable. No pleural effusion. No pneumothorax. Heart/Mediastinum: Unremarkable. No cardiomegaly. Bones/joints: Unremarkable. XR/XR chest 1V portable [id number] IMPRESSION: Right hilar to lower lobe atelectasis versus infiltrate. Radiation Dose CTDIVOL = (mGy): DLP = (mGy-cm) Dictated By: Paresh Manuel MD Signed By: Paresh Manuel MD Signed Date/Time: 11/26/202056 DD/ 13 EKG Data^: EKG 1: Attestation: I personally reviewed and interpreted this EKG as follows: EKG interpretation date: 11/26/20 EKG interpretation time: 19:16 Interpretation: sinus amisha hr 58 no stemi qrs 91 qtc 432 Discharge Plan Discharge Patient Disposition: Admitted As Inpatient Clinical Impression: Hypotension, Diarrhea, Pneumonia Condition: Stable Coding Level of Care Code ED Channel Marketing Coordinator for Chg Fwd Exam Comprehensive
[2020-11-26] MEDS: sodium chloride 0.9% 1,000 ML 999 ML IV ×2 (19:39)
[2020-11-26 19:42] LABS: Basophils % 0.6 %; Eosinophils # 0.1 10^3/uL (0.0-0.8); Eosinophils % 1.8 %; Hematocrit 35.7 % (37.0-47.0); Hemoglobin 11.2 g/dL (11.5-15.3); Lymphocytes # 2.8 10^3/uL (0.8-4.8); Lymphocytes % 41.7 %; Mean Corpuscular HGB Conc 31.4 g/dL (30.0-36.0); Mean Corpuscular Hemoglobin 29.1 pg (28.0-34.0); Mean Corpuscular Volume 92.7 fl (81-99); Mean Platelet Volume 13.3 fL (7.4-10.4); Monocytes # 0.5 10^3/uL (0.2-0.9); Monocytes % 7.1 %; Neutrophils # 3.24 10^3/uL (1.8-7.7); Neutrophils % 48.6 %; Nucleated Red Blood Cells % 0 %; Platelet Count 157 10^3/cmm (130-400); Red Blood Count 3.85 10^6/uL (4.1-5.3); Red Cell Distribution Width 15.2 % (12.1-15.1); White Blood Count 6.7 10^3/uL (4.0-10.0)
[2020-11-26 20:05] LABS: Slide Review Slide Review Perform
[2020-11-26 20:06] LABS: Troponin(5th) Baseline 10 ng/L (0-10)
[2020-11-26 20:09] LABS: Alanine Aminotransferase 12 U/L (0-33); Albumin Level 3.8 g/dL (3.5-5.2); Alkaline Phosphatase 79 IU/L (35-105); Anion Gap 13.8 (5-19); Aspartate Amino Transferase 19 U/L (0-32); Blood Urea Nitrogen 9 mg/dL (6-20); Calcium 8.7 mg/dL (8.5-10.5); Carbon Dioxide 24 mmol/L (22-29); Chloride 96 mmol/L (98-107); Globulin 2.5 g/dL (1.3-4.6); Glucose 95 mg/dL (65-115); Osmolality Calculated 268 mOsm/kg (285-295); Potassium 3.8 mmol/L (3.5-5.1); Sodium 130 mmol/L (136-145); Total Bilirubin 0.2 mg/dL (0.15-1.2); Total Protein 6.3 g/dL (6.6-8.7)
[2020-11-26 20:10] LABS: Lactate (Lactic Acid level) 1.2 mmol/L (0.5-2.2)
[2020-11-26 20:11] LABS: INR 1.02 (0.8-1.2)
[2020-11-26] MEDS: sodium chloride 0.9% 500 ML 999 ML IV (21:13)
[2020-11-26] MEDS: levofloxacin-dextrose 5 % 750 MG/150 ML PREMIX 100 MG IV (21:13)
--- NOTE | 2020-11-26 21:14 | ECG_ITS ---
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 Measurements Intervals [place] Rate: 69 P: 56 RI: 139 QRS: 56 QRSD: 95 T: 58 QT: 415 QTc: 447 Interpretive Statements SINUS RHYTHM Compared to ECG 11/26/2020 19:16:48 Sinus bradycardia no longer present Electronically Signed On 11-27-2020 20:06:05 CDT by Mayra Chacon M.D. [id number]
[2020-11-26 21:15] LABS: Add Urine Microscopic? NO; Charge for UA Resulting for Rev
[2020-11-26 21:29] LABS: Bilirubin Urine Neg (Negative); Blood Urine Neg (Negative); Glucose Urine UA Norm (Normal); Ketones Urine Negative (Negative); Leukocyte Esterase Urine Negative (Negative); Nitrate Urine Negative (Negative); Protein Urine Neg (Negative); Urine Appearance Clear (CLEAR); Urine Color Yellow (Yellow); Urobilinogen Urine Norm (Negative); pH Urine 6.5 (5-7)
[2020-11-26 21:44] LABS: Troponin 5 2HR 9.14 ng/L (0-10)
[2020-11-26 21:45] LABS: Troponin 5 2HR Delta -0.86 ABS# (0-10)
--- NOTE | 2020-11-26 22:28 | PM.HP ---
Providers/Chief Complaint Admitting Physician: Deloris Billy Primary Care Provider: TONY Freire Chief Complaint: HYPOTENSIVE/ WEAK/ NAUSEA History of Present Illness 55-year-old female with a past medical history significant for [id number]-poid history of tobacco abuse, hypertension, hypothyroidism, hepatitis C, gastroesophageal reflux disease, anxiety, depression, bipolar disorder and chronic diarrhea who presented to the hospital with generalized weakness. This was associated with dizziness and feeling lightheaded. Also noted intermittent episode of chest discomfort. Patient was prepped and taken for a colonoscopy on 11/25/2020 which was uneventful. Stated she continued to have loose watery diarrhea post procedure. Seen by her PCP on 11/26 during which time her Lisinopril dose was doubled due to hypertensive episodes. Stated her symptoms started after her second dose of Lisinopril. Upon arrival to ER she was noted to be profoundly hypotensive with systolic BP readings as low as 60s. Laboratory work-up on arrival showed a WBC of 6.7, hemoglobin 11.2, hematocrit of 35.7 and platelet count of 157. Sodium of 130, potassium 3.8, chloride 96, bicarb 24, BUN 9 and creatinine of 1.1 lactic acid of 1.2. Initial total troponin T of -0.86. Urine analysis was negative for infection. Chest x-ray showed right hilar to lower lobe atelectasis versus infiltrate. In emergency room patient was given up to 3 L of NS bolus and Levaquin 750 mg IV x1. At the time of my evaluation patient stated she felt much better and was wanting to eat. Denied any nausea or vomiting. Denied abdominal pain. Review of Systems General: Reports: 10 or more systems reviewed and unremarkable except in HPI and below Medications/Allergies Home Medications Medication Instructions Recorded Confirmed Last Taken Type aripiprazole 10 mg tablet 10 mg PO DAILY #30 tab 09/11/20 11/25/20 11/24/20 Rx dicyclomine 20 mg tablet 20 mg PO BID PRN #30 tab 09/11/20 11/25/20 Unknown Rx escitalopram oxalate 20 mg tablet 20 mg PO DAILY #30 tab 09/11/20 11/25/20 11/24/20 Rx levothyroxine 150 mcg tablet 150 mcg PO DAILY #30 tab 09/11/20 11/25/20 11/24/20 Rx pantoprazole 40 mg tablet,delayed 40 mg PO BID #60 tab 09/11/20 11/25/20 11/24/20 Rx release sucralfate 1 gram tablet 1 g PO BID PRN 09/11/20 11/25/20 Unknown History diphenoxylate-atropine 2.5 1 tab PO BID PRN #10 tab 09/27/20 11/25/20 Unknown Rx mg-0.025 mg tablet fluticasone propionate 50 2 spray INTRANASAL DAILY #16 g 11/26/20 11/26/20 Unknown Rx mcg/actuation nasal spray,suspension lisinopril 20 mg tablet 20 mg PO BID #60 tab 11/26/20 11/26/20 Unknown Rx nicotine See Rx Instructions TRANSDERMAL 11/26/20 11/26/20 Unknown Rx 21mg/24hr-14mg/24hr-7mg/24hr daily .COMPLEX #56 patch transderm patches,sequentl tizanidine 4 mg tablet 4 mg PO BID PRN 30 Days #60 tab 11/26/20 11/26/20 Unknown Rx Allergies Allergy/AdvReac Type Severity Reaction Status Date / Time aspirin Allergy Unknown ALGY-Rash Verified 11/26/20 11:11 doxycycline Allergy Unknown ALGY-Swell Verified 11/26/20 11:11 Lip/Tongue/Throat Penicillins Allergy Unknown ALGY-Rash Verified 11/26/20 11:11 pregabalin [From Lyrica] Allergy Unknown ALGY-Anaphy Verified 11/26/20 11:11 laxis quetiapine [From Seroquel] Allergy Unknown ALGY-Anaphy Verified 11/26/20 11:11 laxis trazodone Allergy Unknown ALGY-Anaphy Verified 11/26/20 11:11 laxis adhesive tape Allergy ALGY-Rash Verified 11/26/20 11:11 atenolol Allergy ADR-Hyperte Verified 11/26/20 11:11 nsion bupropion [From Wellbutrin] Allergy ALGY-Difficulty Verified 11/26/20 11:11 Breathing citalopram Allergy Unknown Verified 11/26/20 11:11 gabapentin [From Neurontin] Allergy ALGY-Difficulty Verified 11/26/20 11:11 Breathing valsartan [From Diovan] Allergy ADR-Hyperte Verified 11/26/20 11:11 nsion PFSH Acute PFSH: Medical History Anxiety and depression Bipolar affect, depressed Chronic pain GERD (gastroesophageal reflux disease) Hepatitis C has been treated Hx of spinal stenosis Hypertension Hypothyroid Surgical History History of cholecystectomy Hx of spinal surgery Hx of total knee replacement Hx of tubal ligation Family History Mother CAD (coronary artery disease) Family/Other Diabetes Other Hypertension Denies family history of Clotting disorder Anesthesia complication Bleeding disorder Social History Quit status (tobacco): considering quitting Second hand smoke exposure: No Alcohol intake: never Caregiver/support person: Yes Lives independently: Yes Household members: spouse Marital status: service: No Current occupational status: disabled History of recent travel: No Current gender identity: Female Special nereida needs: No Agree to transfusion: Yes Vitals/I&O/Wt Last Vital Signs Temp 97.9 F 11/26/20 23:52 Pulse 67 11/26/20 23:52 Resp 18 11/26/20 23:52 BP 108/77 11/26/20 23:52 Pulse Ox 99 11/26/20 23:52 11/26/20 11/26/20 11/27/20 14:59 22:59 06:59 Intake Total 2650 / 2650 Balance 2650 / 2650 Weight last 48 hrs Weight 116.573 kg Weight 116.573 kg Physical Exam Narrative: EXAM NARRATIVE: General : Alert, Awake and oriented x3, NAD HEENT: Grossly unremarkable CVS: NSR Chest: Non-labored respiration Abd: Non-distended Ext: no edema Data : 11/26/20 19:20 11/26/20 19:20 Micro: Microbiology 11/26/20 19:35 Blood Culture - Preliminary Blood SPECIMEN COLLECTED 11/26/20 19:20 Blood Culture - Preliminary Blood SPECIMEN COLLECTED A&P Assessment and plan (1) Hypotension: Likely due to increase in antihypertensive dose in setting of diarrhea and poor po intake. Will continue to hold antihypertensive NS 1L bolus x 3 in ER Continue NS at 75cc/hr Improved currently Status: Acute (2) Pneumonia: Levaquin 750 mg IV x 1 in ER - ordered daily Continue for 5-7 days Sputum culture and gram stain Blood culture x 2 Procalcitonin in AM Monitor for fever - tylenol prn Status: Acute (3) Chronic diarrhea: S/p Colonoscopy on 11/25 Continue outpatient follow up and work up Status: Acute (4) Hypothyroid: Verify home dose and resume Status: Acute Qualifiers: Hypothyroidism type: acquired Qualified Code(s): E03.9 - Hypothyroidism, unspecified (5) Hypertension: Management as noted above Holding antihypertensive medications Status: Acute Qualifiers: Hypertension type: essential hypertension Qualified Code(s): I10 - Essential (primary) hypertension (6) DVT prophylaxis: Lovenox Status: Acute Attestations Medical Necessity Statement*: Anticipate less than 2 midnight stay in hospital for eval and treatment Time Spent in Patient Care: Greater than 35 minutes (>than 50% of time spent in counselling and/or direct pt care on unit). Coding Level of Care Code Acute Drain Layer for [facility] Fwd Diagnoses Hypotension I95.9 Pneumonia J18.9 Chronic diarrhea K52.9 Hypothyroid E03.9 Hypothyroidism type: acquired Hypertension I10 Hypertension type: essential hypertension DVT prophylaxis Z29.9
--- NOTE | 2020-11-26 22:44 | PC.NURSE ---
REPORT CALLED TO LINDA MATHEW
[2020-11-27 00:08] VITALS: BMI 47.0
--- NOTE | 2020-11-27 00:11 | PC.NURSE ---
Patient declines referral to [facility] and says that she has her own physicians that she trusts. Patient states that she no longer has those thoughts and is very happy in her life.
[2020-11-27] MEDS: enoxaparin 40 mg/0.4 mL Syringe SUBCUT (04:02)
[2020-11-27 04:22] VITALS: BP 115/75; PULSE 65; RESP 18; TEMP 36.7; O2SAT 97
[2020-11-27 07:42] VITALS: BP 119/63; PULSE 72; RESP 17; TEMP 36.7; O2SAT 99
[2020-11-27 07:43] VITALS: BP 119/63; PULSE 72; RESP 17; TEMP 36.7; O2SAT 99
[2020-11-27 11:37] VITALS: BP 126/72; PULSE 67; RESP 17; TEMP 37.2; O2SAT 96
[2020-11-27 11:38] VITALS: BP 126/72; PULSE 67; RESP 17; TEMP 37.2; O2SAT 96
--- NOTE | 2020-11-27 14:03 | PM.DCS ---
Discharge Providers Date of Admission: 11/26/20 23:15 Date of Discharge: November 27, 2020 Attending Provider at Admission: Deloris Billy Attending Provider at Discharge: Sal Gilbert Primary Care Provider: TONY Freire Diagnoses at Discharge Discharge Diagnosis (1) Hypotension: Status: Acute (2) Pneumonia: Status: Acute (3) Chronic diarrhea: Status: Acute (4) Hypothyroid: Status: Acute Qualifiers: Hypothyroidism type: acquired Qualified Code(s): E03.9 - Hypothyroidism, unspecified (5) Hypertension: Status: Acute Qualifiers: Hypertension type: essential hypertension Qualified Code(s): I10 - Essential (primary) hypertension (6) DVT prophylaxis: Status: Acute Reason for Visit Reason for Visit: HYPOTENSIVE/ WEAK/ NAUSEA Hospital Course Hospital Course 55-year-old female with a past medical history significant for [id number] history of tobacco abuse, hypertension, hypothyroidism, hepatitis C, gastroesophageal reflux disease, anxiety, depression, bipolar disorder and chronic diarrhea who presented to the hospital with generalized weakness. This was associated with dizziness and feeling lightheaded. Also noted intermittent episode of chest discomfort. Patient was prepped and taken for a colonoscopy on 11/25/2020 which was uneventful. Stated she continued to have loose watery diarrhea post procedure. Seen by her PCP on 11/26 during which time her Lisinopril dose was doubled due to hypertensive episodes. Stated her symptoms started after her second dose of Lisinopril. Upon arrival to ER she was noted to be profoundly hypotensive with systolic BP readings as low as 60s. Laboratory work-up on arrival showed a WBC of 6.7, hemoglobin 11.2, hematocrit of 35.7 and platelet count of 157. Sodium of 130, potassium 3.8, chloride 96, bicarb 24, BUN 9 and creatinine of 1.1 lactic acid of 1.2. Initial total troponin T of -0.86. Urine analysis was negative for infection. Chest x-ray showed right hilar to lower lobe atelectasis versus infiltrate. In emergency room patient was given up to 3 L of NS bolus and Levaquin 750 mg IV x1. At the time of my evaluation patient stated she felt much better and was wanting to eat. Denied any nausea or vomiting. Denied abdominal pain. After IV hydration, holding lisinopril her blood pressures have improved, currently 126/72. She is tolerating oral intake. She has been having cough and producing some phlegm. Due to finding of possible right hilar to lower lobe atelectasis versus infiltrate, with productive cough, is continued on Levaquin to complete course for possible pneumonia. She is otherwise feeling well, wants to return home. She is discharged with request to hold lisinopril entirely for now, monitor blood pressures closely at home (she is planning to obtain a blood pressure cuff), can restart only once blood pressures are rising above 140/90, as well as to monitor for episodes of hypotension on hold blood pressure medication if noted soft blood pressures. Please follow-up in office for resolution of diarrhea, resolution of pneumonia, please follow-up imaging for resolution of right lower lobe abnormality. Please follow-up renal function to assess for resolution of MARIUSZ. Discharge Data Data Completed and Pending: Completed Studies During Hospitalization Category Date Time Status XR chest 1V nicanor ble [id number] Urgent Exams 11/26/20 19:14 Completed Pending at discharge Category Date Time Status Blood Culture Sta t Lab 11/26/20 19:35 Results Complete Blood Co unt w/Auto AM LABS Lab 11/28/20 04:00 Ordered Comprehensive Met abolic Panel AM LA BS Lab 11/28/20 04:00 Ordered Lactic Sepsis W/R eflex AM LABS Lab 11/28/20 04:00 Ordered Magnesium AM LABS Lab 11/28/20 04:00 Ordered Procalcitonin AM LABS Lab 11/28/20 04:00 Ordered Labs from last 24 hours 11/26/20 11/26/20 11/26/20 21:14 21:11 19:20 WBC RBC Hgb Hct MCV MCH MCHC RDW Plt Count MPV Neut % (Auto) Lymph % (Auto) [place] % (Auto) Eos % (Auto) Baso % (Auto) Neut # (Auto) Lymph # (Auto) [place] # (Auto) Eos # (Auto) Baso # (Auto) Nucleated RBC % (a uto) Nucleated RBCs # PT INR Sodium Potassium Chloride Carbon Dioxide Anion Gap BUN Creatinine GFR Calculation Glucose Calculated Osmolal ity Lactate Calcium Total Bilirubin AST ALT Alkaline Phosphata se Troponin T Baselin e 10 Troponin T 120 Min [place] 9.14 Delta Troponin T -0.86 L Total Protein Albumin Globulin Urine Color Yellow Urine Appearance Clear Urine pH 6.5 Ur Specific Gravit y 1.000 L Urine Protein Neg Urine Glucose (UA) Norm Urine Ketones Negative Urine Blood Neg Urine Nitrate Negative Urine Bilirubin Neg Urine Urobilinogen Norm Ur Leukocyte Vanita ase Negative 11/26/20 11/26/20 11/26/20 19:20 19:20 19:20 WBC RBC Hgb Hct MCV MCH MCHC RDW Plt Count MPV Neut % (Auto) Lymph % (Auto) [place] % (Auto) Eos % (Auto) Baso % (Auto) Neut # (Auto) Lymph # (Auto) [place] # (Auto) Eos # (Auto) Baso # (Auto) Nucleated RBC % (a uto) Nucleated RBCs # PT 13.70 INR 1.02 Sodium 130 L Potassium 3.8 Chloride 96 L Carbon Dioxide 24 Anion Gap 13.8 BUN 9 Creatinine 1.1 H GFR Calculation 52.0 L Glucose 95 Calculated Osmolal ity 268 L Lactate 1.2 Calcium 8.7 Total Bilirubin 0.2 AST 19 ALT 12 Alkaline Phosphata se 79 Troponin T Baselin e Troponin T 120 Min [place] Troponin T Total Protein 6.3 L Albumin 3.8 Globulin 2.5 Urine Color Urine Appearance Urine pH Ur Specific Gravit y Urine Protein Urine Glucose (UA) Urine Ketones Urine Blood Urine Nitrate Urine Bilirubin Urine Urobilinogen Ur Leukocyte Vanita ase 11/26/20 19:20 WBC 6.7 RBC 3.85 L Hgb 11.2 L Hct 35.7 L MCV 92.7 MCH 29.1 MCHC 31.4 RDW 15.2 H Plt Count 157 MPV 13.3 H Neut % (Auto) 48.6 Lymph % (Auto) 41.7 [place] % (Auto) 7.1 Eos % (Auto) 1.8 Baso % (Auto) 0.6 Neut # (Auto) 3.24 Lymph # (Auto) 2.8 [place] # (Auto) 0.5 Eos # (Auto) 0.1 Baso # (Auto) 0.0 Nucleated RBC % (a uto) 0 Nucleated RBCs # 0.0 PT INR Sodium Potassium Chloride Carbon Dioxide Anion Gap BUN Creatinine GFR Calculation Glucose Calculated Osmolal ity Lactate Calcium Total Bilirubin AST ALT Alkaline Phosphata se Troponin T Baselin e Troponin T 120 Min [place] Troponin T Total Protein Albumin Globulin Urine Color Urine Appearance Urine pH Ur Specific Gravit y Urine Protein Urine Glucose (UA) Urine Ketones Urine Blood Urine Nitrate Urine Bilirubin Urine Urobilinogen Ur Leukocyte Vanita ase Vitals: Last Vital Signs Temp 99.0 F 11/27/20 11:38 Pulse 67 11/27/20 11:38 Resp 17 11/27/20 11:38 BP 126/72 11/27/20 11:38 Pulse Ox 96 11/27/20 11:38 Discharge Plan Discharge Patient Disposition: Home Condition: Stable Prescriptions: New levofloxacin 750 mg tablet 750 mg PO DAILY 6 Days Qty: 6 RF: 0 Continued diphenoxylate-atropine [Lomotil] 2.5-0.025 mg tablet 1 tab PO BID PRN (Reason: diarrhea) Qty: 10 RF: 0 nicotine 21-14-7 mg/24 hr patch, TD daily, sequential See Rx Instructions transdermal .COMPLEX Qty: 56 RF: 0 fluticasone propionate [Flonase Allergy Relief] 50 mcg/actuation spray,suspension 2 spray intranasal DAILY Qty: 16 RF: 2 tizanidine 4 mg tablet 4 mg PO BID PRN (Reason: Muscle Pain) 30 Days Qty: 60 RF: 1 sucralfate 1 gram tablet 1 g PO BID PRN (Reason: Stomach Upset) RF: 0 dicyclomine 20 mg tablet 20 mg PO BID PRN (Reason: abd pain) Qty: 30 RF: 0 pantoprazole 40 mg tablet,delayed release (DR/EC) 40 mg PO BID Qty: 60 RF: 2 levothyroxine 150 mcg tablet 150 mcg PO DAILY Qty: 30 RF: 2 escitalopram oxalate 20 mg tablet 20 mg PO DAILY Qty: 30 RF: 2 aripiprazole 10 mg tablet 10 mg PO DAILY Qty: 30 RF: 2 Discontinued lisinopril 20 mg tablet 10 mg PO BID RF: 0 Discharge Orders: Discharge Order (Routine); Ordered 11/27/20 Ordered By: Sal Gilbert Referrals: Nadia May FNP [Primary Care Provider] - 12/05/20 9:20 am Discharge Diet: Usual diet Discharge Activity: Increase activity as tolerated Patient Instructions: Levofloxacin (By mouth), Deep Vein Thrombosis (DC), Hypotension (GEN) Activity Restrictions/Additional Instructions: Please measure your blood pressures closely at home. Please do not restart lisinopril unless her blood pressures start rising above 140/90 mmHg. In case blood pressure is elevated, start cautiously at the half of your previous dose of lisinopril, at 5 mg. Please do not take the medication in case at any point your blood pressure is less than 100 top number or less than 50 bottom number. Please follow-up with your primary doctor for reassessment. Please complete antibiotic course for possible pneumonia. Have your primary doctor reassess you, as well as follow-up for resolution of the imaging findings after 4-6 weeks. Please have your primary doctor follow-up your kidney function due to noted mild kidney injury, creatinine 1.1. Please avoid any NSAIDs like ibuprofen, Aleve, etc. Hold lisinopril which may contribute to kidney injury as well. Please work with your primary provider to help you quit smoking. Discharge Attestations Time Spent in Discharge Care*: greater than 30 min Quality Metrics Clinical Quality Measures During this hospital stay, did patient experience: None Coding Level of Care Code Acute g FW PR note Diagnoses Hypotension I95.9 Pneumonia J18.9 Chronic diarrhea K52.9 Hypothyroid E03.9 Hypothyroidism type: acquired Hypertension I10 Hypertension type: essential hypertension DVT prophylaxis Z29.9
[2020-11-27 14:24] VITALS: BP 126/72; PULSE 67; RESP 17; TEMP 37.2; O2SAT 96
--- NOTE | 2020-11-27 14:25 | PC.NURSE ---
Discharge Note Patient discharged to home via private transportation accompanied by . Discharge instructions reviewed with patient and/or product sales representative. Mobile pharmacy medications and/or prescriptions provided. Belongings/home medications returned.
--- NOTE | 2020-11-29 09:19 | PC.SOCIAL ---
discharge follow up call, spoke with patient. patient is taking levoquin as prescribed. patient reports she has been weak the past 2 days but feels better today. patient thinks her b/p has been low but hasn't been taking. she plans to get a b/p cuff today. advised patient to take her b/p and keep a log to take to her pcp at follow up. discussed to discontinue lisinopril unless b/p is greater than 140/90 and to restart with 5mg. patient verbalized understanding. patient is aware of follow up appointment with charisma ruiz on 12-05, advised patient she needed to take her discharge paperwork with her so the doctor would know to recheck kidney function due to creatinine being 1.1. advised patient to avoid taking NSAID's due to kidney function. patient denies any questions.
--- NOTE | 2020-11-29 14:57 | PC.RESP ---
SMOKING CESSATION AND PULMONARY REHAB INFORMATION SENT TO PATIENT.
== END 2020-11-27 14:26 | disposition home or self-care (01) ==
LOC: ER 22:53 → MEDSURG 23:47
PROVIDERS: Admitting Provider Hospitalist; Emergency Provider Emergency Medicine; PCP Nurse Practitioner Family; Visit Provider Internal Medicine
DX: I95.9 Hypotension, unspecified (principal); J18.9 Pneumonia, unspecified organism; K52.9 Noninfective gastroenteritis and colitis, unspecified; E03.9 Hypothyroidism, unspecified; I10 Essential (primary) hypertension; Z29.9 Encounter for prophylactic measures, unspecified; Z87.891 Personal history of nicotine dependence; Z86.19 Personal history of other infectious and parasitic diseases; K21.9 Gastro-esophageal reflux disease without esophagitis; F41.9 Anxiety disorder, unspecified; F32.9 Major depressive disorder, single episode, unspecified; F31.9 Bipolar disorder, unspecified; Z82.49 Family history of ischemic heart disease and other diseases of the circulatory system; Z83.3 Family history of diabetes mellitus; F17.210 Nicotine dependence, cigarettes, uncomplicated
CPT/HCPCS: 71045; 80053; 81003; 83605; 84484; 85025; 85610; 87040; 87205; 93005; 96361; 96365; 96372; 97161; 99285; G0378; J1650; J1956; J7030; J7040

== ENCOUNTER → 2020-12-02 15:42 | Outpatient (BNVA) | payer MEDICAID, SELFPAY | PROVIDERS: PCP Nurse Practitioner Family; Visit Provider Nurse Practitioner Family | DX: M25.50 Pain in unspecified joint (principal); J18.9 Pneumonia, unspecified organism | CPT/HCPCS: 71046; 81000 ==

== ENCOUNTER → 2020-12-03 08:55 | Outpatient (BNVA) | payer MEDICAID, SELFPAY | PROVIDERS: PCP Nurse Practitioner Family; Visit Provider Nurse Practitioner Family | DX: M25.50 Pain in unspecified joint (principal) | CPT/HCPCS: 80053; 84550; 85025; 85651; 86038; 86140; 86200; 86431 ==

== ENCOUNTER → 2020-12-19 13:52 | Outpatient (BNVA) | payer MEDICAID, SELFPAY | PROVIDERS: PCP Nurse Practitioner Family; Visit Provider Nurse Practitioner Family | DX: Z11.52 Encounter for screening for COVID-19 (principal); Z20.822 Contact with and (suspected) exposure to COVID-19 | CPT/HCPCS: 87635 ==

== ENCOUNTER → 2020-12-30 11:50 | Outpatient (BNVA) | payer MEDICAID, SELFPAY | PROVIDERS: PCP Nurse Practitioner Family; Visit Provider Nurse Practitioner Family | DX: Z20.822 Contact with and (suspected) exposure to COVID-19 (principal); Z11.52 Encounter for screening for COVID-19 | CPT/HCPCS: 87635 ==

== ENCOUNTER → 2021-02-28 00:01 | Outpatient (BNVA) | payer MEDICAID, SELFPAY | PROVIDERS: PCP Nurse Practitioner Family; Visit Provider Nurse Practitioner Family | DX: I10 Essential (primary) hypertension (principal); R73.9 Hyperglycemia, unspecified | CPT/HCPCS: 80053; 83036 ==

== ENCOUNTER → 2021-04-21 08:17 | Outpatient (BNVA) | payer MEDICAID, SELFPAY | PROVIDERS: PCP Nurse Practitioner Family; Visit Provider Internal Medicine Rheumatology | DX: M19.90 Unspecified osteoarthritis, unspecified site (principal); R76.8 Other specified abnormal immunological findings in serum; Z79.899 Other long term (current) drug therapy; Z71.85 Encounter for immunization safety counseling; F17.210 Nicotine dependence, cigarettes, uncomplicated; Z11.59 Encounter for screening for other viral diseases | CPT/HCPCS: 99204 ==

== ENCOUNTER 2021-04-21 10:06 | Outpatient (CLI) | payer MEDICAID, SELFPAY ==
--- NOTE | 2021-04-21 10:12 | XRR_ITS ---
PROCEDURE INFORMATION: Exam: XR Right Foot Exam date and time: 04/21/2021 10:12 AM Age: 55 years old Clinical indication: Pain; Bilateral; Prior surgery; Surgery type: RT foot planter fascitis; Additional info: Z79.899 - other [facility] (current) drug therapy TECHNIQUE: Imaging protocol: XR Right foot. Views: 3 or more views. COMPARISON: No relevant prior studies available. FINDINGS: Bones/joints: There are small calcaneal spurs at the insertions of the plantar aponeurosis and Achilles tendon. No fracture, dislocation or other acute abnormalities are seen. Mild DJD is present with sclerosis at the 1st metatarsophalangeal joint. Soft tissues: Normal. XR/XR foot RT min 3V* [id number] IMPRESSION: 1. Small calcaneal spurs. 2. Mild DJD.
--- NOTE | 2021-04-21 10:12 | XRR_ITS ---
PROCEDURE INFORMATION: Exam: XR Right Hand Exam date and time: 04/21/2021 10:12 AM Age: 55 years old Clinical indication: Pain; Hand; Bilateral; Additional info: Z79.899 - other snf (current) drug therapy TECHNIQUE: Imaging protocol: XR Right hand. Views: 3 or more views. COMPARISON: No relevant prior studies available. FINDINGS: Bones/joints: Chronic degenerative changes are present especially in the 1st carpometacarpal joint with joint space narrowing small osteophytes sclerosis and bony erosion. Mild degenerative changes are present in the interphalangeal joints. No fracture or other acute abnormality. Soft tissues: Normal. XR/XR hand RT min 3V* [id number] IMPRESSION: Chronic degenerative disease predominantly in the 1st carpometacarpal joint.
--- NOTE | 2021-04-21 10:12 | XRR_ITS ---
PROCEDURE INFORMATION: Exam: XR Left Hand Exam date and time: 04/21/2021 10:12 AM Age: 55 years old Clinical indication: Pain; Hand; Bilateral; Additional info: Z79.899 - other halfway (current) drug therapy TECHNIQUE: Imaging protocol: XR Left hand. Views: 3 or more views. COMPARISON: No relevant prior studies available. FINDINGS: Bones/joints: No fracture, dislocation or other acute abnormalities are seen. Chronic degenerative changes are present especially in the 1st carpometacarpal joint with joint space narrowing, osteophyte formation, sclerosis and bony erosion. Milder degenerative changes are present in the interphalangeal joints. Soft tissues: Normal. XR/XR hand LT min 3V* [id number] IMPRESSION: Chronic degenerative disease predominantly in the 1st carpometacarpal joint.
--- NOTE | 2021-04-21 10:12 | XRR_ITS ---
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 Views: 3 or more views. COMPARISON: No relevant prior studies available. FINDINGS: Bones/joints: There is a tiny plantar calcaneal spur and small calcaneal spur at the Achilles tendon insertion. No fracture or other acute abnormalities are seen. There are no significant degenerative changes. Soft tissues: Normal. XR/XR foot LT min 3V* [id number] IMPRESSION: Mild calcaneal spurring. No acute abnormality.
[2021-04-21 12:12] LABS: 25 Hydroxy Vitamin D 28 ng/mL (30-100)
[2021-04-21 12:13] LABS: Hepatitis B Core AB, Total Reactive (Nonreactive); Hepatitis B Surface Antigen Non-Reactive (Nonreactive)
[2021-04-22 11:22] LABS: COMPLEMENT COMPONENT C3C 126 mg/dL (83-193); COMPLEMENT COMPONENT C4C 30 mg/dL (15-57)
[2021-04-23 14:26] LABS: COMPLEMENT, TOTAL (CH50) >60 U/mL (31-60)
[2021-04-23 16:16] LABS: THYROID PEROXIDASE ANTIBODIES 4 IU/mL (<9)
[2021-04-24 10:44] LABS: ANA SCREEN, IFA POSITIVE (NEGATIVE)
[2021-04-24 13:07] LABS: Quantiferon Mitogen 9.56 IU/mL; Quantiferon Nil 0.02 IU/mL; Quantiferon Plus TB1 0.06 IU/mL; Quantiferon Plus TB2 0.05 IU/mL; Quantiferon TB Gold NEGATIVE (NEGATIVE)
[2021-04-24 15:18] LABS: CENTROMERE B ANTIBODY <1.0 NEG AI (<1.0 NEG); JO-1 ANTIBODY <1.0 NEG AI (<1.0 NEG); RNP ANTIBODY <1.0 NEG AI (<1.0 NEG); SCL-70 ANTIBODY <1.0 NEG AI (<1.0 NEG); SJOGREN'S ANTIBODY (SS-A) <1.0 NEG AI (<1.0 NEG); SM ANTIBODY <1.0 NEG AI (<1.0 NEG); SS-B <1.0 NEG AI (<1.0 NEG)
[2021-04-25 13:47] LABS: DNA AB (DS) CRITHIDIA,IFA NEGATIVE (NEGATIVE)
== END 2021-04-21 10:07 | disposition home or self-care (01) ==
LOC: RAD 10:10
PROVIDERS: PCP Nurse Practitioner Family; Visit Provider Internal Medicine Rheumatology
DX: M19.90 Unspecified osteoarthritis, unspecified site (principal); Z79.899 Other long term (current) drug therapy; Z11.59 Encounter for screening for other viral diseases; R76.8 Other specified abnormal immunological findings in serum; M77.32 Calcaneal spur, left foot; M77.31 Calcaneal spur, right foot; M19.071 Primary osteoarthritis, right ankle and foot
CPT/HCPCS: 36415; 73130; 73630; 82306; 86160; 86162; 86235; 86255; 86376; 86480; 86704; 87340

== ENCOUNTER → 2021-06-20 13:27 | Outpatient (BNVA) | payer MEDICAID, SELFPAY | PROVIDERS: PCP Nurse Practitioner Family; Visit Provider Nurse Practitioner Family | DX: R10.2 Pelvic and perineal pain (principal); N89.8 Other specified noninflammatory disorders of vagina; E03.9 Hypothyroidism, unspecified; R00.2 Palpitations; I10 Essential (primary) hypertension; F41.9 Anxiety disorder, unspecified; F32.9 Major depressive disorder, single episode, unspecified; K21.9 Gastro-esophageal reflux disease without esophagitis | CPT/HCPCS: 80053; 80061; 84443; 85025; 87491; 87591; 87661 ==

== ENCOUNTER → 2022-01-05 11:37 | Outpatient (BNVA) | payer MEDICAID, SELFPAY | PROVIDERS: PCP Nurse Practitioner Family; Visit Provider Nurse Practitioner Family | DX: E03.9 Hypothyroidism, unspecified (principal); E78.5 Hyperlipidemia, unspecified; I10 Essential (primary) hypertension; K21.9 Gastro-esophageal reflux disease without esophagitis; F41.9 Anxiety disorder, unspecified; F32.9 Major depressive disorder, single episode, unspecified; K74.60 Unspecified cirrhosis of liver; E55.9 Vitamin D deficiency, unspecified | CPT/HCPCS: 80053; 80061; 82140; 82306; 84443 ==

== ENCOUNTER → 2022-02-12 13:12 | Outpatient (BNVA) | payer MEDICAID, SELFPAY | PROVIDERS: PCP Nurse Practitioner Family; Visit Provider Nurse Practitioner Family | DX: K72.90 Hepatic failure, unspecified without coma (principal) | CPT/HCPCS: 80053 ==

== ENCOUNTER → 2022-03-04 11:08 | Outpatient (BNVA) | payer MEDICAID, SELFPAY | PROVIDERS: PCP Nurse Practitioner Family; Visit Provider Nurse Practitioner Family | DX: R30.0 Dysuria (principal); E03.9 Hypothyroidism, unspecified; R73.9 Hyperglycemia, unspecified; F41.9 Anxiety disorder, unspecified; K72.90 Hepatic failure, unspecified without coma; G47.00 Insomnia, unspecified; K74.60 Unspecified cirrhosis of liver; I10 Essential (primary) hypertension; F32.9 Major depressive disorder, single episode, unspecified; E55.9 Vitamin D deficiency, unspecified; K21.9 Gastro-esophageal reflux disease without esophagitis; E78.5 Hyperlipidemia, unspecified | CPT/HCPCS: 80053; 80061; 83036 ==

== ENCOUNTER → 2022-07-16 15:48 | Outpatient (BNVA) | payer MEDICAID, SELFPAY | PROVIDERS: PCP Nurse Practitioner Family; Visit Provider Nurse Practitioner Family | DX: F31.30 Bipolar disorder, current episode depressed, mild or moderate severity, unspecified (principal); G89.4 Chronic pain syndrome; I10 Essential (primary) hypertension; E03.9 Hypothyroidism, unspecified; E78.5 Hyperlipidemia, unspecified; K21.9 Gastro-esophageal reflux disease without esophagitis | CPT/HCPCS: 80053; 80061; 84443 ==

== ENCOUNTER → 2022-11-27 11:02 | Outpatient (BNVA) | payer MEDICAID, SELFPAY | PROVIDERS: PCP Nurse Practitioner Family; Visit Provider Nurse Practitioner Family | DX: E78.5 Hyperlipidemia, unspecified (principal); E03.9 Hypothyroidism, unspecified; G47.00 Insomnia, unspecified; I10 Essential (primary) hypertension; F41.9 Anxiety disorder, unspecified; F32.9 Major depressive disorder, single episode, unspecified; K21.9 Gastro-esophageal reflux disease without esophagitis; E55.9 Vitamin D deficiency, unspecified; R05.9 Cough, unspecified; F32.A Depression, unspecified; Z12.2 Encounter for screening for malignant neoplasm of respiratory organs; J18.9 Pneumonia, unspecified organism | CPT/HCPCS: 80053; 80061; 82306 ==

== ENCOUNTER → 2023-04-12 10:57 | Outpatient (BNVA) | payer MEDICAID, SELFPAY | PROVIDERS: PCP Nurse Practitioner Family; Visit Provider Nurse Practitioner Family | DX: F41.9 Anxiety disorder, unspecified (principal); F32.9 Major depressive disorder, single episode, unspecified; I10 Essential (primary) hypertension; E78.5 Hyperlipidemia, unspecified; E55.9 Vitamin D deficiency, unspecified; E03.9 Hypothyroidism, unspecified; R00.2 Palpitations | CPT/HCPCS: 80053; 80061; 84443; 85025 ==

== ENCOUNTER → 2023-05-25 10:24 | Outpatient (BNVA) | payer MEDICAID, SELFPAY | PROVIDERS: PCP Nurse Practitioner Family; Visit Provider Nurse Practitioner Family | DX: M25.50 Pain in unspecified joint (principal); M19.90 Unspecified osteoarthritis, unspecified site; R76.8 Other specified abnormal immunological findings in serum | CPT/HCPCS: 80053; 85025; 85651; 86038; 86140; 86200; 86431 ==

== ENCOUNTER → 2023-07-19 14:24 | Outpatient (BNVA) | payer MEDICAID, SELFPAY | PROVIDERS: PCP Nurse Practitioner Family; Visit Provider Nurse Practitioner Family | DX: I10 Essential (primary) hypertension; E03.9 Hypothyroidism, unspecified; E55.9 Vitamin D deficiency, unspecified; E78.2 Mixed hyperlipidemia | CPT/HCPCS: 80053; 80061; 82306; 84443; 85025 ==

== ENCOUNTER → 2023-09-28 13:00 | Outpatient (BNVA) | payer MEDICAID, SELFPAY | PROVIDERS: PCP Nurse Practitioner Family; Visit Provider Nurse Practitioner | DX: M19.011 Primary osteoarthritis, right shoulder (principal); R29.898 Other symptoms and signs involving the musculoskeletal system | CPT/HCPCS: 73030; 99204 ==

== ENCOUNTER → 2023-10-06 14:46 | Outpatient (BNVA) | payer MEDICAID, SELFPAY | PROVIDERS: PCP Nurse Practitioner Family; Visit Provider Nurse Practitioner Family | DX: I10 Essential (primary) hypertension (principal); E03.9 Hypothyroidism, unspecified; F41.9 Anxiety disorder, unspecified; F31.30 Bipolar disorder, current episode depressed, mild or moderate severity, unspecified; E78.2 Mixed hyperlipidemia | CPT/HCPCS: 80053; 84443; 85025 ==

== ENCOUNTER 2023-10-26 14:56 | Outpatient (CLI) | payer MEDICAID, SELFPAY ==
--- NOTE | 2023-10-26 15:15 | MR_ITS ---
WS: [id number] MRI RIGHT SHOULDER HISTORY: right shoulder pain COMPARISON: None available. TECHNIQUE: Multiplanar sequences of the shoulder joint are submitted. Moderate AC joint arthritis. Downsloping of the acromion. Mild subacromial impingement. Increased flu id and T2 signal in the subacromial and subdeltoid bursa. No os acromion. Biceps tendon is not identi fied in the bicipital groove and may be dislocated port Mild supraspinatus muscle atrophy. Complete tear of the distal supraspinatus tendon. Tendon is retrac angela to the superior humeral head. Subscapularis tendon is only visualized on few sequences well due t o motion. Subscapularis tendon does appear to be intact. Infraspinatus tendon is probably intact also . Fluid surrounding the humeral head and extending into the axillary pouch. Moderate narrowing of the g lenohumeral joint. Marrow edema and subchondral cystic changes along the anterior inferior glenoid. L abrum is difficult to see well due to the motion. The anterior labrum is abnormal and probably torn. This is adjacent to the abnormal signal also with in the glenoid. MR/MR shoulder RT wo con* [id number] IMPRESSION: 1. Quality of this examination is compromised by motion and body habitus. 2. Biceps tendon is not identified in the bicipital groove and may be dislocat ed. 3. Complete tear of the distal supraspinatus tendon with retraction. 4. Joint effusion surround the humeral head extending into the axillary pouch. 5. Marrow edema with subchondral cyst in the anterior inferior glenoid. Suspec t the adjacent anterior labrum is torn. 6. Moderate AC joint arthritis. 7. Mild atrophy supraspinatus muscle.
== END 2023-10-26 14:57 | disposition home or self-care (01) ==
LOC: RAD 14:57
PROVIDERS: PCP Nurse Practitioner Family; Visit Provider Nurse Practitioner
DX: M19.011 Primary osteoarthritis, right shoulder (principal); M75.122 Complete rotator cuff tear or rupture of left shoulder, not specified as traumatic; M25.412 Effusion, left shoulder; M85.412 Solitary bone cyst, left shoulder
CPT/HCPCS: 73221

== ENCOUNTER 2023-11-30 11:46 | Outpatient (CLI) | payer MEDICAID, SELFPAY ==
[2023-11-30 12:29] LABS: Basophils % 0.8 %; Eosinophils # 0.2 10^3/uL (0.0-0.8); Eosinophils % 3.7 %; Hematocrit 35.6 % (36-47); Lymphocytes # 1.4 10^3/uL (0.8-4.8); Lymphocytes % 28.7 %; Mean Corpuscular HGB Conc 29.8 g/dL (30-55); Mean Corpuscular Hemoglobin 27.2 pg (27-33); Mean Corpuscular Volume 91.3 fl (85-98); Mean Platelet Volume 11.9 fL (7.4-10.4); Monocytes # 0.3 10^3/uL (0.2-0.9); Monocytes % 6.9 %; Neutrophils # 2.94 10^3/uL (1.8-7.7); Neutrophils % 59.7 %; Nucleated Red Blood Cells % 0 %; Platelet Count 231 10^3/cmm (157-399); Red Cell Distribution Width 15.9 % (12.1-15.1); White Blood Count 4.92 10^3/uL (3.29-11.43)
[2023-11-30 12:30] LABS: Bilirubin Urine Negative (Negative); Blood Urine Negative (Negative); Glucose Urine UA Negative (Normal); Ketones Urine Trace (Negative); Leukocyte Esterase Urine Negative (Negative); Nitrate Urine Negative (Negative); Protein Urine Negative (Negative); Specific Gravity, Urine 1.024 (1.005-1.030); Urine Appearance Clear (CLEAR); Urine Color Yellow (Yellow); pH Urine 5.5 (5-7)
[2023-11-30 12:32] LABS: Add Urine Microscopic? YES; Bacteria Urine None Seen /hpf; Hyaline Casts Urine 1.21 /lpf; RBC Urine 0-2 /hpf (0-2); Squamous Epithelial Cell Urine 0-5 /hpf (0-5); WBC Urine 0-5 /hpf (0-5)
[2023-11-30 12:47] LABS: Alanine Aminotransferase 14 U/L (0-33); Albumin Level 4.1 g/dL (3.5-5.2); Alkaline Phosphatase 76 U/L (35-105); Anion Gap 10.6 (5-19); Aspartate Amino Transferase 21 U/L (0-32); Blood Urea Nitrogen 14 mg/dL (6-20); Calcium 9.1 mg/dL (8.5-10.5); Carbon Dioxide 30 mmol/L (22-29); Chloride 97 mmol/L (98-107); Globulin 3.3 g/dL (1.3-4.6); Glomerular Filtration Rate 57.4 mL/min (90-130); Glucose 94 mg/dL (65-115); Osmolality Calculated 276 mOsm/kg (285-295); Potassium 4.6 mmol/L (3.5-5.1); Sodium 133 mmol/L (136-145); Total Bilirubin 0.3 mg/dL (0.15-1.2); Total Protein 7.4 g/dL (6.6-8.7)
== END 2023-11-30 11:47 | disposition home or self-care (01) ==
LOC: LAB 11:47
PROVIDERS: PCP Nurse Practitioner Family; Visit Provider Nurse Practitioner
DX: R29.898 Other symptoms and signs involving the musculoskeletal system (principal); M19.011 Primary osteoarthritis, right shoulder; M25.511 Pain in right shoulder; G89.29 Other chronic pain
CPT/HCPCS: 36415; 80053; 81001; 85025